=== PATIENT | male | born 1980 | race Two or more races ===

== ENCOUNTER 2017-09-19 06:21 | Emergency (ER) | payer SELFPAY ==
[~2017-09-19] VITALS: Ht 157.5 cm; Wt 77.1 kg
[2017-09-19 06:30] VITALS: BP 120/75
[2017-09-19] MEDS ORDERED: LORazepam Inj 2mg/ml 1ml IM ONE (06:30)
[2017-09-19] MEDS ORDERED: LORazepam 1mg tab ORAL ONE (06:45)
[2017-09-19 11:15] VITALS: BP 120/75
--- NOTE | 2017-09-21 14:38 | Emergency Room Report ---
History of Present Illness General Chief Complaint: Substance Abuse Source: Patient Present Illness HPI 37-year-old male presents ED for violation. Patient brought in by EMS. Patient states he used meth today; EMS states that he was harassing his sister. Patient is not endorsing SI or HI. Denies hearing voices. No other aggravating relieving factors. Denies any other associated symptoms Allergies: Coded Allergies: No Known Allergies (Unverified , 09/19/17) Patient History Past Medical History: seizures Pertinent Family History: none Social History: Reports: drug use, Denies: smoking, alcohol use Immunizations: UTD Reviewed Nursing Documentation: PMH: Agreed, PSxH: Agreed Nursing Documentation-PMH Past Medical History: No History, Except For Hx Seizures: Yes - Epilepsy Review of Systems All Other Systems: negative except mentioned in HPI Physical Exam Vital Signs Date Time Temp Pulse Resp B/P (MAP) Pulse Ox O2 Delivery O2 Flow Rate FiO2 09/19/17 06:16 85 16 120/75 99 Room Air Sp02 EP Interpretation: reviewed, normal General Appearance: no apparent distress, alert, GCS 15, non-toxic Head: normocephalic, atraumatic Eyes: bilateral eye normal inspection, bilateral eye PERRL ENT: hearing grossly normal, normal pharynx, no angioedema, normal voice Neck: full range of motion, supple/symm/no masses Respiratory: chest non-tender, lungs clear, normal breath sounds, speaking full sentences Cardiovascular #1: regular rate, rhythm, no edema Cardiovascular #2: 2+ carotid (R), 2+ carotid (L), 2+ radial (R), 2+ radial (L) , 2+ dorsalis pedis (R), 2+ dorsalis pedis (L) Gastrointestinal: normal bowel sounds, non tender, soft, non-distended, no guarding, no rebound Rectal: deferred Genitourinary: normal inspection, no CVA tenderness Musculoskeletal: back normal, gait/station normal, normal range of motion, non- tender Neurologic: alert, oriented x3, responsive, motor strength/tone normal, sensory intact, speech normal Psychiatric: judgement/insight normal, memory normal, no suicidal/homicidal ideation, anxious Reflexes: 3+ bicep (R), 3+ bicep (L), 3+ tricep (R), 3+ tricep (L), 3+ knee (R) , 3+ knee (L) Skin: normal color, no rash, warm/dry, well hydrated Lymphatic: no adenopathy Medical Decision Making Diagnostic Impression: Primary Impression: Substance abuse ER Course Hospital Course 37-year-old male presents ED, agitated after using methamphetamines Differential diagnoses include: Psychosis, EtOH, drug abuse Clinical course patient placed on stretcher. On border guard. Patient is asking to be discharged at this time. However patient does appear agitated; I offered him Ativan to help her relax and he agreed After initial history and physical ordered ativan Patient allowed to rest. On reassessment patient feels better. Wishes to be discharged. I see no evidence of SI or HI i. I feel this is a highly complex case requiring extensive working including EKG/Rhythm strip, Xray/CT/US, Blood/urine lab work, repeat exams while in ED, and administration of strong opiates/narcotics for pain control, admission to hospital or close patient follow up. Diagnosis -drug abuse Stable and discharged to home. Followup with PMD. Return to ED if symptoms recur or worsen Last Vital Signs Date Time Temp Pulse Resp B/P (MAP) Pulse Ox O2 Delivery O2 Flow Rate FiO2 09/19/17 11:15 120/75 09/19/17 06:30 85 16 99 Room Air Status: improved Disposition: HOME, SELF-CARE Condition: Stable Scripts No Active Prescriptions or Reported Meds Referrals: NOT CHOSEN IPA/,REFERRING (PCP) Patient Instructions: Stimulant Use Disorder-Methamphetamines HUMPHREY JAMES M.D. Sep 21, 2017 14:38
== END 2017-09-19 11:15 | disposition home or self-care (01) ==
LOC: EDBD 06:21 → EMR 07:00
DX: F15.10 Other stimulant abuse, uncomplicated (principal); Z86.69 Personal history of other diseases of the nervous system and sense organs
CPT/HCPCS: 99282